=== PATIENT | female | born 1965 | race Caucasian/White ===

== ENCOUNTER 2018-07-27 10:38 | Emergency (ER) | payer MEDICAID ==
[~2018-07-27] VITALS: Ht 160 cm; Wt 106.6 kg
[2018-07-27] MEDS ORDERED: MS CONTIN15 MG PO (10:52)
[2018-07-27] MEDS ORDERED: SYNTHROID175 MCG PO (10:53)
[2018-07-27] MEDS ORDERED: HYDROCODON-ACE1 EAC5 PO (10:53)
[2018-07-27] MEDS ORDERED: ZANAFLEX2 MG PO (10:53)
[2018-07-27] MEDS ORDERED: VITAMIN D5000 UNIT PO (10:54)
[2018-07-27] MEDS ORDERED: PROPRANOLOL 1010 MG PO (10:54)
[2018-07-27] MEDS ORDERED: SLEEP AID25 M1 PO (10:55)
[2018-07-27 11:11] LABS: ABSOLUTE BASOPHILS 0.1 thou/uL (0.0-0.2); ABSOLUTE EOSINOPHILS 0.1 thou/uL (0.0-0.7); ABSOLUTE LYMPHOCYTES 1.4 thou/uL (0.8-5.3); ABSOLUTE MONOCYTES 0.3 thou/uL (0.0-1.2); ABSOLUTE NEUTROPHILS 1.8 thou/uL (1.6-8.1); BASOPHILS 1.4 %; EOSINOPHILS 3.7 %; HEMATOCRIT 36.8 % (37.0-47.0); HEMOGLOBIN 12.4 gm/dL (12.0-15.0); LYMPHOCYTES 39.1 %; MCH 28.9 pg (26.0-34.0); MCHC 33.6 g/dL (28.0-37.0); MONOCYTES 7.3 %; MPV 8.7 fl. (7.2-11.1); NUCLEATED RBCS 0 /100WBC; PLATELET COUNT* 223 thou/uL (150-400); POLYS 48.5 %; RBC 4.28 mil/uL (4.20-5.00); RDW-CV 13.4 % (10.5-14.5); WBC 3.7 thou/uL (4.0-11.0)
[2018-07-27 11:24] LABS: ANION GAP 9 mmol/L (7-16); BUN 13 mg/dL (7-18); CALCIUM 9.1 mg/dL (8.5-10.1); CHLORIDE 107 mmol/L (98-107); CO2 26 mmol/L (21-32); CREATININE 0.9 mg/dL (0.6-1.3); GLUCOSE 118 mg/dL (70-99); POTASSIUM 3.7 mmol/L (3.5-5.1); PROTIME 10.5 Seconds (9.20-11.50); SODIUM 142 mmol/L (136-145)
[2018-07-27 11:36] LABS: ALBUMIN 3.5 g/dL (3.4-5.0); ALKALINE PHOSPHATASE 75 U/L (46-116); LIPASE 113 U/L (73-393); NT-PRO BRAIN NAT PEPTIDE 184 pg/mL (<300); SGOT 17 U/L (15-37); SGPT 22 U/L (30-65); TOTAL BILIRUBIN 0.6 mg/dL (<0.1-1.0); TOTAL PROTEIN 6.8 g/dL (6.4-8.2); TROPONIN-I LEVEL <0.06 ng/mL (<0.06)
[2018-07-27] MEDS ORDERED: MEDROL DOSPAK21 TA1 PO (12:02)
[2018-07-27 12:11] VITALS: BP 143/78
--- NOTE | 2018-07-27 17:35 | EKG ---
[place] [address] ELECTROCARDIOGRAM REPORT Name: SELVIN HUGHES Room: [facility]#: [id number] Admission: 07/27/18 Attend Phys: Discharge: 07/27/18 Date of : 61 Report #: [id number] THIS REPORT FOR: //name// [facility] ED Test Date: 2018-07-27 Test Time: 10:45:46 Pat Name: SELVIN HUGHES Department: Room: Gender: F Circular Ripsaw Operator: : 1965 Requested By: Eric Moreno Order Number: [id number] MD: Corey Varner Measurements Intervals [place] Rate: 69 P: 46 MS: 164 QRS: 28 QRSD: 94 T: 38 QT: 399 QTc: 428 Interpretive Statements Sinus rhythm Abnormal inferior Q waves Baseline wander in lead(s) V1 No previous ECG available for comparison Electronically Signed On 07-27-2018 17:35:30 CDT by Corey Varner [email or web address] <ELECTRONICALLY SIGNED> By: Corey Varner MD, [facility] 07/27/18 1735 1045 1045 Corey Varner MD, FACC /EPI
== END 2018-07-27 12:11 | disposition home or self-care (01) ==
LOC: M.ERS 10:38
PROVIDERS: Emergency Medicine
DX: M54.6 Pain in thoracic spine (principal); G43.909 Migraine, unspecified, not intractable, without status migrainosus; Z90.49 Acquired absence of other specified parts of digestive tract; Z90.710 Acquired absence of both cervix and uterus; Z88.6 Allergy status to analgesic agent; Z88.8 Allergy status to other drugs, medicaments and biological substances

== ENCOUNTER 2019-02-09 17:37 | Emergency (ER) | payer MEDICAID ==
[~2019-02-09] VITALS: Ht 157.5 cm; Wt 111.1 kg
[~2019-02-09 17:37] MED LIST: HYDROCODON-ACE1 EAC5 PO; MEDROL DOSPAK21 TA1 PO; MS CONTIN15 MG PO; PROPRANOLOL 1010 MG PO; SLEEP AID25 M1 PO; SYNTHROID175 MCG PO; VITAMIN D5000 UNIT PO; ZANAFLEX2 MG PO
[2019-02-09] MEDS ORDERED: VITAMIN D250 MCG PO (17:50)
[2019-02-09] MEDS ORDERED: AZITHROMYCIN 2250 MG PO (17:59)
[2019-02-09 18:38] VITALS: BP 176/81
== END 2019-02-09 18:39 | disposition home or self-care (01) ==
LOC: M.ERS 17:37
DX: J40 Bronchitis, not specified as acute or chronic (principal); I10 Essential (primary) hypertension; G43.909 Migraine, unspecified, not intractable, without status migrainosus; Z88.6 Allergy status to analgesic agent; Z90.49 Acquired absence of other specified parts of digestive tract; Z90.710 Acquired absence of both cervix and uterus

== ENCOUNTER 2019-10-14 09:26 | Inpatient (IN) | payer MEDICAID ==
[~2019-10-14] VITALS: Ht 157.5 cm; Wt 128.4 kg
--- NOTE | ~2019-10-14 | PROC ---
[address] [address] PROCEDURE REPORT Name: SELVIN HUGHES Room: [address] IN .R.#: [id number] Admission: 10/14/19 Attend Phys: Nomi Lewis Discharge: 10/19/19 Date of : 61 Report #: [id number] THIS REPORT FOR: //name// cc: Physician not on staff Physician not on staff ~ THIS REPORT FOR: //name// For GI report, please see the Provation report in Perceptive 7 content. By: 0823Medical Records Staff [facility] /JEANNE
--- NOTE | ~2019-10-14 | CON ---
[address] [address] CONSULTATION Name: SAULSELVIN Av Room: [address] IN .R.#: [id number] Admission: 10/14/19 Attend Phys: Nomi Lewis Discharge: Date of : 61 Report #: [id number] THIS REPORT FOR: //name// cc: Physician not on staff Physician not on staff ~ THIS REPORT FOR: //name// CC: SUNNI CARPENTER Physician staff Sky Lynn DATE OF SERVICE: 10/15/2019 REQUESTING PHYSICIAN: Sky Lynn DO. REASON FOR CONSULTATION: Acute kidney injury. HISTORY OF PRESENT ILLNESS: The patient is a very pleasant 54-year-old female with medical history significant for hypertension, obesity, history of bronchitis. She presents to the hospital with complaints of abdominal pain. The patient states that abdominal pain has been present for last several weeks, but now it is getting worse. She also had some vomiting and nausea. She has some low-grade fever. She in the past had a history of renal stones, but CT scan that was done here did not show any nephrolithiasis or any other obstruction. When she presented to the hospital, her creatinine was 3.7, it is 3.7 today as well. Her urine showed trace protein, trace blood, 1+ leukocyte esterase, few bacteria. No microbiology was done. She was started on Levaquin and metronidazole. Her pain is still present. PAST MEDICAL HISTORY: As I mentioned earlier. SOCIAL HISTORY: No tobacco or alcohol abuse. FAMILY HISTORY: Negative for renal problems. REVIEW OF SYSTEMS: Positive for symptoms as mentioned earlier, otherwise all systems reviewed and negative. MEDICATIONS: Reviewed. From my standpoint, she was on furosemide 20 mg a day and lisinopril 5 mg a day. PHYSICAL EXAMINATION: GENERAL: She is awake, alert, oriented. VITAL SIGNS: Blood pressure now is 180/104, it was as low as 74/35. Today, [place] [address] CONSULTATION Name: SELVIN HUGHES Room: [address]#: [id number] Admission: 10/14/19 Attend Phys: Nomi Lewis Discharge: Date of : 61 Report #: [id number] am suspecting that 180/104 is incorrect reading, her blood pressure, while she was here been fluctuating before 74/35 up to 130/62. Again, 180/104, most likely is incorrect reading, her heart rate is 107, temperature 36.6. HEENT: Pupils are round. NECK: Fatty. LUNGS: Clear. CARDIOVASCULAR: Tachycardia. ABDOMEN: Soft, but diffusely tender. LOWER EXTREMITIES: Trace edema. LABORATORY DATA: Serum sodium 139, potassium ____, chloride 105, carbon dioxide 20, BUN 34, creatinine 3.7, hemoglobin is 13.4, white count 6.1 thousand. Hepatitis negative. Her COVID-19 is negative[address] She had CT scan, abdominal and pelvis CT and they found indeterminate left lower lobe pulmonary nodule, malignancy not excluded. There were no abnormalities found in kidney or ureters. No evidence of diverticulitis. ASSESSMENT: 1. Acute kidney injury likely due to volume depletion. She had nausea, vomiting, abdominal pain, decreased p.o. intake. She was also hypotensive, blood pressure was in 70s today. 2. Abdominal pain. Surgery is on the case. 3. Left lower lobe nodule. PLAN: 1. Continue hydration. 2. We will follow on her labs. 3. Check her postvoid residual. 4. Await more recommendation from the surgery. By: 1523 2046Alexchristina Morales MD /nt
--- NOTE | ~2019-10-14 | CON ---
[address] [address] CONSULTATION Name: SELVIN HUGHES Room: [address] IN .R.#: [id number] Admission: 10/14/19 Attend Phys: Nomi Lewis Discharge: Date of : 61 Report #: [id number] THIS REPORT FOR: //name// cc: Physician not on staff Physician not on staff ~ THIS REPORT FOR: //name// CC: SUNNI CARPENTER Physician staff Sky Lynn DATE OF SERVICE: 10/17/2019 HISTORY OF PRESENT ILLNESS: This is a 54-year-old female patient who is admitted with multiple medical problems. Neurology consultation was requested to evaluate the patient for memory problem, I will confine myself to that. She is also having a lot of other issues, which is being addressed by multiple other consultants. She said first that memory problem started about 6 months ago, but then she said it is going longer than that, this started spontaneously without any trauma. Presently, she is having numerous other medical issues. She is having recurrent nausea and vomiting. She has kidney dysfunction. She was running some low-grade temperature. REVIEW OF SYSTEMS: A 14-point review of system is positive for longstanding back pain. She has a kidney problem. She has an abdominal pain. She has a pulmonary nodule. She denies any history of anxiety and depression. The rest of the 14-point review of system was noncontributory. PAST MEDICAL HISTORY: Back pain. FAMILY HISTORY: Noncontributory. SOCIAL HISTORY: She has a prior history of smoking. She does not use alcohol. PHYSICAL EXAMINATION: Indicate she is alert, responsive, able to follow simple and complex command. Cranial nerve examination appeared noncontributory. Speech looks intact. Strength, sensation, reflexes are symmetrical, but reflexes were diminished. Position sense appeared to be present. I could not look at the patient's fundus. There is no meningeal sign. She is morbidly obese, but hearing and vision looks adequate. Cardiac and respiratory examinations appear unremarkable. Blood pressure is 127/49, respirations 18, pulse is 75, temperature is 98.5. WBC count is 4.8. IMPRESSION: As far as the memory problem is concerned, [place] [address] CONSULTATION Name: SAULSELVIN Av Room: [address] IN [facility]#: [id number] Admission: 10/14/19 Attend Phys: Nomi Lewis Discharge: Date of : 61 Report #: [id number] workup. I gave her some thiamine. She had sleeve surgery in the past. We may even have to check a copper level, but initially I will check a B12 levels and do an MRI on her when she is stable, her nausea need to be better before we do that and if nausea is not better, then we can do only CT. I will see how she is doing tomorrow and go from there. Thank you very much for this referral. By: 1115 1214Pramona Barclay MD /nt
[~2019-10-14 09:26] MED LIST changes: +AZITHROMYCIN 2250 MG PO; +VITAMIN D250 MCG PO; +ZANAFLEX2 M1 PO; -ZANAFLEX2 MG PO
[2019-10-14 09:31] VITALS: BP 133/62
[2019-10-14] MEDS ORDERED: PROTONIX40 M2 PO (09:36)
[2019-10-14] MEDS ORDERED: PERCOCET 10-321 EAC1 PO (09:36)
[2019-10-14] MEDS ORDERED: FUROSEMIDE 20 M20 M1 PO (09:36)
[2019-10-14] MEDS ORDERED: HYDROXYZINE HCL25 M2 PO (09:37)
[2019-10-14] MEDS ORDERED: LEVO-T100 MCG PO (09:37)
[2019-10-14] MEDS ORDERED: VITAMIN D250 MCG PO (09:37)
[2019-10-14] MEDS ORDERED: PRINIVIL10 MG PO (09:38)
[2019-10-14 09:43] LABS: URINE BLOOD TRACE (Negative); URINE CLARITY CLEAR; URINE COLOR YELLOW; URINE GLUCOSE-RANDOM NEGATIVE (Negative); URINE KETONES NEGATIVE (Negative); URINE LEUKOCYTES-REFLEX 1+ (Negative); URINE NITRITE-REFLEX NEGATIVE (Negative); URINE PROTEIN TRACE (Negative); URINE SPECIFIC GRAVITY >= 1.030 (1.005-1.030); URINE UROBILINOGEN 0.2 E.U./dl (0.2-1.0)
[2019-10-14 09:51] LABS: URINE BILIRUBIN 1+ (Negative)
[2019-10-14 09:52] LABS: BACTERIA-REFLEX 1-9 Few /HPF (None Seen); CASTS None Seen /LPF (None Seen); CRYSTALS None Seen /LPF (None Seen); ICTOTEST (BILI CONFIRMATORY) Negative (Negative); SQUAMOUS 0-3 Few /LPF (0-3); URINE RBC 0-2 Rare /HPF (0-2); URINE WBC-REFLEX 0-5 Rare /HPF (0-5)
[2019-10-14 10:02] LABS: ABSOLUTE EOSINOPHILS 0.3 thou/uL (0.0-0.7); ABSOLUTE LYMPHOCYTES 2.3 thou/uL (0.8-5.3); ABSOLUTE MONOCYTES 0.4 thou/uL (0.0-1.2); ABSOLUTE NEUTROPHILS 3.2 thou/uL (1.6-8.1); BASOPHILS 0.8 %; EOSINOPHILS 4.4 %; HEMATOCRIT 38.9 % (37.0-47.0); HEMOGLOBIN 13.4 gm/dL (12.0-15.0); LYMPHOCYTES 36.9 %; MCH 29.1 pg (26.0-34.0); MCHC 34.3 g/dL (28.0-37.0); MCV 84.8 fL (80.0-100.0); MONOCYTES 6.1 %; MPV 8.8 fl. (7.2-11.1); NUCLEATED RBCS 0 /100WBC; PLATELET COUNT* 253 thou/uL (150-400); POLYS 51.8 %; RBC 4.59 mil/uL (4.20-5.00); WBC 6.1 thou/uL (4.0-11.0)
[2019-10-14 10:10] LABS: CALCIUM 9.8 mg/dL (8.5-10.1); CREATININE 3.7 mg/dL (0.6-1.3); POTASSIUM 3.8 mmol/L (3.5-5.1)
[2019-10-14 10:14] LABS: ALBUMIN 4.1 g/dL (3.4-5.0); TOTAL BILIRUBIN 0.9 mg/dL (<0.1-1.0); TOTAL PROTEIN 7.9 g/dL (6.4-8.2)
--- NOTE | 2019-10-14 11:19 | NUR ---
Roxanne notified upon pt return from CT. Pt connected to bp and puls ox monitor as she was prior
--- NOTE | 2019-10-14 15:45 | EKG ---
[place] [address] ELECTROCARDIOGRAM REPORT Name: SELVIN HUGHES Room: [place] [address] ADM IN [facility].#: [id number] Admission: 10/14/19 Attend Phys: Sky Lynn Discharge: Date of : 61 Date of Service: 10/14/19 1008 Report #: [id number] THIS REPORT FOR: //name// [facility] ED Test Date: 2019-10-14 Test Time: 10:08:58 Pat Name: SELVIN HUGHES Department: Room: [facility] Gender: F Guyline Operator: ELISSA : 1965 Requested By: James Escalante Order Number: [id number] MD: Corey Varner Measurements Intervals [place] Rate: 94 P: 54 WI: 178 QRS: 26 QRSD: 95 T: 24 QT: 341 QTc: 427 Interpretive Statements Sinus rhythm Inferior infarct, old Compared to ECG 07/27/2018 10:45:46 Myocardial infarct finding now present Inferior Q waves no longer present Q waves no longer present Electronically Signed On 10-14-2019 15:44:57 CDT by Corey Varner [email or web address] <ELECTRONICALLY SIGNED> By: Corey Varner MD, FAC 10/14/19 1544 1008 1008 Corey Varner MD, [facility] /EPI
[2019-10-14 16:05] LABS: BE -7.6 mmol/L (-2 to +3); PCO2 VENOUS 49.4 mmHg (41.0-51.0)
[2019-10-14 16:15] VITALS: BP 112/52
[2019-10-14 16:18] VITALS: BP 123/52
--- NOTE | 2019-10-14 16:51 | NUR ---
PATIENT ADMITTED TO 218 THIS AFTERNOON. SHE IS ALERT AND ORIENTED X 4. SHE INITALLY DENIED PAIN ON ARRIVAL BUT SHE IS NOW C/O ABD PAIN. PATIENT ORIENTED TO ROOM AND PROCEDURES. PLACED ON TELE MONITOR. TELE SHOWS SR. IV FLUIDS INFUSING PER ORDER.
[2019-10-14 20:00] VITALS: BP 93/47
[2019-10-15] VITALS (7 sets, daily range): BP systolic 74–180; BP diastolic 35–104
[2019-10-15 03:06] LABS: HEPATITIS B SURFACE AG Negative (Negative)
--- NOTE | 2019-10-15 06:43 | NUR ---
ASSUMED CARE OF PT AFTER REPORT AT 1930. PT A&OX4. VSS. PHYSICAL ASSESSMENT COMPLETED AND CHARTED. PT ON RA. PT TRACING SR/SB ON TELE. PT UPADLIB. PT COMPLAINED OF NAUSEA, ABDOMINAL & BACK PAIN-MED GIVEN PER MAR. CALL LIGHT WITHIN REACH.
--- NOTE | 2019-10-15 11:09 | NUR ---
Nutrition: BMI 50. Admit with abd pain that started 2-3 weeks ago. Had not been taking lasix. C/o nausea this am. RFT's elevated, albumin WNL. Promethazine and other meds reviewed. Hx of scleroderma, lap band, gastric sleeve. Wt up from prior admits. Expect good po as symptoms resolve, assess at mild risk.
[2019-10-15 12:43] LABS: CALCIUM 8.8 mg/dL (8.5-10.1); CREATININE 3.7 mg/dL (0.6-1.3); POTASSIUM 4.5 mmol/L (3.5-5.1)
--- NOTE | 2019-10-15 16:07 | NUR ---
CM SPOKE TO THE PT TO DISCUSS HER HOME SITUATION, DISCHARGE PLANNING, AND TO INFORM OF THE ROLE OF CM. PT A&O. NORMALLY INDEPENDENT WITH ADL'S, AND DRIVES. PT RESIDES AT HOME, AND IS THE PRIMARY CAREGIVER FOR HER 10 YEAR OLD GRANDSON. PT INFORMS THAT HER DTR IS A GOOD SOURCE OF SUPPORT FOR HER AND IS CURRENLTY PROVIDING CARE FOR HER GRANDSON WHILE SHE IS INPATIENT. PT USES A WALKER FOR MOBILITY, BUT ALSO OWNS A [facility] HOSPITAL BED IN THE HOME. PT HAS 0 HX OF HH AND SNF. PT PLANS TO RETURN HOME AT D/C, AND DOES NOT ANTICIPATE ANY D/C PLANNING NEEDS.
[2019-10-16] VITALS: BP 114/48
[2019-10-16 04:59] VITALS: BP 103/43
--- NOTE | 2019-10-16 05:44 | NUR ---
Pt alert and oriented. VSS on 2L O2. Pt ambulates independently. Encouraged to call if needing help. Pt had pain meds several times this shift. Pt was able to sleep off and on this shift. LFA IV infiltrated. Warm compress to L/arm. New Iv to RFA, with NS @100. Meds given as ordered. Post void residue = 0ml. Will continue to monitor.
[2019-10-16 08:00] VITALS: BP 102/48
[2019-10-16 09:28] LABS: ABSOLUTE EOSINOPHILS 0.2 thou/uL (0.0-0.7); ABSOLUTE LYMPHOCYTES 1.6 thou/uL (0.8-5.3); ABSOLUTE MONOCYTES 0.4 thou/uL (0.0-1.2); ABSOLUTE NEUTROPHILS 3.6 thou/uL (1.6-8.1); BASOPHILS 0.5 %; EOSINOPHILS 2.9 %; HEMATOCRIT 33.1 % (37.0-47.0); LYMPHOCYTES 27.5 %; MCH 29.2 pg (26.0-34.0); MCHC 34.1 g/dL (28.0-37.0); MCV 85.7 fL (80.0-100.0); MONOCYTES 6.7 %; MPV 8.4 fl. (7.2-11.1); NUCLEATED RBCS 0 /100WBC; PLATELET COUNT* 236 thou/uL (150-400); POLYS 62.4 %; RBC 3.86 mil/uL (4.20-5.00); RDW-CV 14.2 % (10.5-14.5); WBC 5.7 thou/uL (4.0-11.0)
[2019-10-16 09:34] LABS: HEMOGLOBIN 11.3 gm/dL (12.0-15.0)
[2019-10-16 09:37] LABS: CALCIUM 8.9 mg/dL (8.5-10.1); POTASSIUM 4.4 mmol/L (3.5-5.1)
[2019-10-16 11:59] VITALS: BP 101/53
[2019-10-16 17:27] VITALS: BP 142/61
--- NOTE | 2019-10-16 18:55 | NUR ---
PT. AOX4, VSS, PAIN NOT UNDER CONTROL, SR-ST ON MONITOR. DISCUSSED POC AND POSSIBLE CAUSE OF PAIN TO BLE PER SURGERY. 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 REINFORCED REASONING. CALL LIGHT AND PERSONAL BELONGINGS PLACED WITHIN REACH. TRANSFERED CARE OF PT TO JAVID MANLEY AT 1630 HOURS. PT. IN STABLE CONDITION AT THAT TIME.
[2019-10-16 19:30] VITALS: BP 148/70
[2019-10-17] VITALS: BP 99/60
[2019-10-17 04:00] VITALS: BP 127/49
[2019-10-17 04:58] LABS: ABSOLUTE EOSINOPHILS 0.1 thou/uL (0.0-0.7); ABSOLUTE LYMPHOCYTES 1.2 thou/uL (0.8-5.3); ABSOLUTE MONOCYTES 0.3 thou/uL (0.0-1.2); ABSOLUTE NEUTROPHILS 3.2 thou/uL (1.6-8.1); EOSINOPHILS 1.9 %; HEMATOCRIT 28.8 % (37.0-47.0); HEMOGLOBIN 9.8 gm/dL (12.0-15.0); LYMPHOCYTES 24.6 %; MCH 29.1 pg (26.0-34.0); MCHC 34.2 g/dL (28.0-37.0); MONOCYTES 6.6 %; MPV 8.7 fl. (7.2-11.1); NUCLEATED RBCS 0 /100WBC; PLATELET COUNT* 207 thou/uL (150-400); POLYS 65.9 %; RBC 3.38 mil/uL (4.20-5.00); RDW-CV 13.7 % (10.5-14.5); WBC 4.8 thou/uL (4.0-11.0)
[2019-10-17 05:17] LABS: CALCIUM 8.9 mg/dL (8.5-10.1); CREATININE 2.2 mg/dL (0.6-1.3)
--- NOTE | 2019-10-17 06:47 | NUR ---
PT ALERT AND ORIENTED. PT STILL ON 2L O2. CONTINOUS PULSOX. MEDS GIVEN ORDERED. PAIN MEDS GIVEN THIS SHIFT. PT STILL GETTING 8MG OF MORPHINE. PT VOICED HAVING HEADACHE FOR THE PAST 2 NIGHTS WHICH IS NEW TO ME I HAVE TAKEN CARE OF HER FOR 2 NIGHTS AND DID PAIN ASSESSMENT AND SHE NEVER MENTIONED HEADACHE PRIOR. CONCERNS FOR DRUG SEEKING BEHAVIOR. PT AMBULATES INDEPENDENTLY TO THE BATHROOM. ENCOURAGED TO CALL IF NEEDING ASSISTANCE. WILL CONTINUE TO MONITOR.
[2019-10-17 08:00] VITALS: BP 151/79
--- NOTE | 2019-10-17 08:10 | NUR ---
ASSUMED CARE OF PATIENT THIS MORNING FROM NIGHT NURSE. PT IS DOING BETTER TODAY BUT STILL HAVING CO OF PAIN AND NAUSEA. SHE WAS EDUCATED ON POC, DISEASE PROCESS AND USING THE CALL LIGHT FOR ASSISTANCE. WILL CONTINUE TO CONTROL PAIN AND NAUSEA.
[2019-10-17 12:00] VITALS: BP 143/107
[2019-10-17 16:10] VITALS: BP 106/83
[2019-10-17 20:00] VITALS: BP 156/58
[2019-10-18] VITALS: BP 106/57
[2019-10-18 04:00] VITALS: BP 132/60
[2019-10-18 05:20] LABS: CALCIUM 8.7 mg/dL (8.5-10.1); CREATININE 1.5 mg/dL (0.6-1.3); POTASSIUM 4.4 mmol/L (3.5-5.1)
--- NOTE | 2019-10-18 07:40 | NUR ---
PT A+O X4. MULTIPLE REQUESTS @ HS. AGREEMENT WITH PT TO KEEP O2 AND CONTINUOUS PULSE OX ON BEFORE GIVING IV PAIN MEDS PT WAS ALREADY ON MULTIPLE PO OPIATES AND PT'S 02 SAT WAS UPPER 80'S ON ROOM AIR. PT AGREED TO KEEP ON O2 AND PULSE OX, BUT KEPT TAKING THEM OFF THROUGH THE NIGHT. PT DID NOT WAKE UP AFTER BEDTIME IV MORPHINE DOSE BUT DID WAKE UP THIS AM WHEN RN STARTED IV ABX. ASKED FOR IV PAIN MEDS BUT PT HAD UNSTEADY GAIT WHILE WALKING BACK FROM THE BATHROOM. GAVE PT ORAL PAIN MEDICATION WAS SCHEDULED AND REEDUCATED PT ON NEED TO WEAR O2 AND PULSE-OX AND EFFECTS OF OPIATES ON RESPIRATORY DRIVE. PASSED ABOVE INFORMATION TO DAY RN.
[2019-10-18 07:45] VITALS: BP 147/76
[2019-10-18 12:06] LABS: GLOMERULR BASEM MEMBRN AB 3 units (0-20)
[2019-10-18 12:19] VITALS: BP 167/92
[2019-10-18 15:07] LABS: M-SPIKE Not Observed g/dL (Not Observed)
[2019-10-18 16:26] VITALS: BP 145/72
--- NOTE | 2019-10-18 18:48 | NUR ---
PT A&OX4 VSS. SCHEDULED PO PAIN MEDS ADMINISTERED ORDERED. PRN IV MORPHINE X1 THIS SHIFT. PT ON ROOM AIR AT TIME OF ASSESSMENT. PT UP AD VALERIY, GAIT STEADY. IV TO RFA PATENT. SOME BRUISING OBSERVED NEAR SITE AT TIME OF ASSUMING CARE. NO SWELLING, NO C/O PAIN WHEN FLUSHED. GI CONSULTED, PT TO BE NPO AT MIDNIGHT. 1X PO AND RECTAL BISACODYL FOR C/O CONSTIPATION. LG STOOL THIS AFTERNOON. PT EDUCATED REGARDING PAIN MEDICATION AND NEED FOR INCREASED WATER TO HELP WITH CONSTIPATION. PT RESTS IN ROOM WITH CALL LIGHT AND PHONE IN REACH. WILL CONTINUE TO MONITOR.
[2019-10-18 20:00] VITALS: BP 167/79
[2019-10-18 21:06] LABS: ANA INTERPRETATION Positive (())
[2019-10-19] VITALS (7 sets, daily range): BP systolic 130–171; BP diastolic 48–91
[2019-10-19 05:07] LABS: CALCIUM 8.4 mg/dL (8.5-10.1); CREATININE 1.1 mg/dL (0.6-1.3); POTASSIUM 3.7 mmol/L (3.5-5.1)
[2019-10-19] MEDS ORDERED: ZOFRAN4 MG PO (09:09)
[2019-10-19] MEDS ORDERED: PREDNISONE 5 MG5 M1 PO (09:09)
[2019-10-19] MEDS ORDERED: MIRALAX17 GM PO (13:27)
[2019-10-19] MEDS ORDERED: FLAGYL500 M1 PO (13:27)
[2019-10-19] MEDS ORDERED: CEPHALEXIN250 MG PO (13:27)
[2019-10-19] MEDS ORDERED: PREDNISONE 20 M20 MG PO (13:28)
[2019-10-19] MEDS ORDERED: NEURONTIN 300M300 M2 PO (13:28)
[2019-10-19] MEDS ORDERED: PNV 29-1 TABLE1 EACH PO (13:28)
[2019-10-19] MEDS ORDERED: VITAMIN B-1100 M1 PO (13:28)
[2019-10-19] MEDS ORDERED: CARAFATE 1 GM TA1 G1 PO (13:28)
[2019-10-19] MEDS ORDERED: PROTONIX40 M2 PO (13:28)
--- NOTE | 2019-10-20 09:59 | CON ---
[address] [address] CONSULTATION Name: SELVIN HUGHES Room: [address] IN .R.#: [id number] Admission: 10/14/19 Attend Phys: Nomi Lewis Discharge: 10/19/19 Date of : 61 Report #: [id number] THIS REPORT FOR: //name// cc: Physician not on staff Physician not on staff ~ THIS REPORT FOR: //name// CC: SUNNI CARPENTER DO Physician staff Sky Lynn DICTATED BY: Kirstin Wade [facility] DATE OF SERVICE: 10/18/2019 Please note at the time of this dictation, the patient was seen and physically examined by myself. REASON FOR CONSULTATION: Abdominal pain and vomiting. HISTORY OF PRESENT ILLNESS: This is a 54-year-old female who presented to the Emergency Room with severe abdominal pain and vomiting. She states it began about 2-3 weeks ago. She thought it was her "liver" acting up, states that she has been vomiting some dark green emesis 2 days prior to admission and her pain is worse in the lower abdominal region. She states she started running a fever at home as well and it progressively got worse. The patient states she has never had a colonoscopy before they attempted to do one at [facility] and they were unable to do because the patient was in such severe pain, is what she states. The patient states her bowels only move once to twice every 2 weeks and she does not take anything regularly for them. She takes a great deal. She has ongoing back issues, which she complains about fairly significantly with radiation into her hips, which she has been requiring a great deal of pain medicine and the abdominal CT was essentially negative on admission. The patient has not had very small pellets after an enema was given and still has not had much relief. ALLERGIES: FENTANYL AND LYRICA. MEDICATIONS: From home; include hydroxyzine, morphine, MS Contin, vitamin D2, Protonix, Lasix, levothyroxine, Prinivil, Zanaflex and Percocet. 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 PAST SURGICAL HISTORY: Uterine and also a history of uterine and cervical cancer, post-hysterectomy, thyroidectomy partial, lap band gastric sleeve, [place] [address] CONSULTATION Name: SELVIN HUGHES Room: [address] IN [facility]#: [id number] Admission: 10/14/19 Attend Phys: Nomi Lewis Discharge: 10/19/19 Date of : 61 Report #: [id number] cholecystectomy, multiple ovarian cysts removed and procedure for spinal cord leaks. FAMILY HISTORY: Negative for any GI or female cancers. SOCIAL HISTORY: Denies any alcohol, tobacco or illegal drug use. REVIEW OF SYSTEMS: Twelve-point review of systems is essentially negative except what is mentioned in the HPI. PHYSICAL EXAMINATION: VITAL SIGNS: Temperature 37.5, pulse 83, respirations 17, blood pressure 147/76. HEART: Regular rate and rhythm. LUNGS: Diminished, but clear. ABDOMEN: Soft, positive bowel sounds to hypoactive bowel sounds throughout with generalized tenderness, mainly in the lower quadrants. LABORATORY DATA: Hemoglobin on admission was 13.4, she has gradually dropped down to 9.8; white count is 4.8 and was normal on admission, platelets 207. Lipase is 148. BUN on admission was 33, has gradually dropped down to 20. GFR is 36. TSH was 0.121. CT showed absent gallbladder, otherwise essentially negative. The patient also had been complaining of some dysphagia periodically with swallowing as well. IMPRESSION: 1. Abdominal pain. 2. Constipation, chronic. 3. Dysphagia. 4. Melanotic stool. 5. Anemia. 6. Personal history of cervical and uterine cancer. PLAN: 1. EGD tomorrow with Dr. Flynn. 2. Dulcolax 20 mg tablet now and Dulcolax suppository 20 mg now as well. 3. Further recommendations to be made after the above has been noted. 4. The patient will need a colonoscopy with a 2-day prep as an outpatient since she has never had one, unless we choose to evaluate her anemia [place] [address] CONSULTATION Name: SAULSELVIN Av Room: [address] IN [facility].#: [id number] Admission: 10/14/19 Attend Phys: Nomi Lewis Discharge: 10/19/19 Date of : 61 Report #: [id number] Thank you for allowing us to participate in this patient's care. Please do not hesitate to call with any questions in regard to this consult. <ELECTRONICALLY SIGNED> By: Ross Flynn MD 10/20/19 0959 1207 1237Ross Flynn MD /nt
--- NOTE | 2019-10-21 12:06 | PATH ---
[address] [address] PATHOLOGY RPT PROCEDURE Name: ARLYN HUGHES Room: [address] IN M.R.#: [id number] Admission: 10/14/19 Date of : 61 Discharge: 10/19/19 Report #: [id number] Path Case #: [id number] [facility] Accession Number: [id number] . 01 Material submitted: . stomach - ANTRAL BIOPSY FOR GASTRITIS TO R/O H. PYLORI . 01 Clinical history: . Gastritis to r/o H.pylori . 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 (CAROLE:pit 10/21/2019) . Special stain: H. pylori immuno . [facility] 10/21/2019 1135 Local . 02 Electronically signed: . Chris Mosqueda MD, Pathologist NPI- [id number] . 01 Gross description: . The specimen is received in formalin, labeled "Froilan, Arlyn, antral biopsy" and consists of multiple fragments of hughes tissue measuring 0.9 x 0.5 x 0.2 cm in aggregate which are entirely submitted in A1. (SDY; 10/20/2019) SYU/SYU 10/20/2019 1341 Local . 02 Pathologist provided ICD-10: K29.50 . 02 CPT . 517651, S60201 Specimen Comment: A courtesy copy of this report has been sent to [phone] Specimen Comment: [phone], Specimen Comment: Report sent to ,DR CHAN / DR CARPENTER Performed at: [address] [facility] [address] [id number] MD Toni Bella MD Phone: [phone] Performed at: [address] [facility] [address] [place], [place] [id number] [place] [address] PATHOLOGY RPT PROCEDURE Name: ARLYN HUGHES Room: [address] IN M.R.#: [id number] Admission: 10/14/19 Date of : 61 Discharge: 10/19/19 Report #: [id number] Path Case #: [id number] MD Chris Mosqueda MD Phone: [phone]
== END 2019-10-19 19:00 | disposition home or self-care (01) | DRG 392 ==
LOC: M.ERS 09:26 → M.TBA-ER 12:08 → M.2W 16:17
PROVIDERS: Family Medicine; Internal Medicine Nephrology; Surgery; ADMIT Internal Medicine; ATTEND Internal Medicine
PROC: 0DB68ZX Excision of Stomach, Via Natural or Artificial Opening Endoscopic, Diagnostic (ICD-10-PCS; principal; 2019-10-19)
PROC: 0D738ZZ Dilation of Lower Esophagus, Via Natural or Artificial Opening Endoscopic (ICD-10-PCS; principal; 2019-10-19)
DX: K29.70 Gastritis, unspecified, without bleeding (principal); K55.9 Vascular disorder of intestine, unspecified; N17.9 Acute kidney failure, unspecified; N39.0 Urinary tract infection, site not specified; E89.0 Postprocedural hypothyroidism; G43.909 Migraine, unspecified, not intractable, without status migrainosus; R91.1 Solitary pulmonary nodule; K59.09 Other constipation; D64.9 Anemia, unspecified; I10 Essential (primary) hypertension; F41.1 Generalized anxiety disorder; K21.9 Gastro-esophageal reflux disease without esophagitis; M46.80 Other specified inflammatory spondylopathies, site unspecified; M34.9 Systemic sclerosis, unspecified; M54.9 Dorsalgia, unspecified; E06.3 Autoimmune thyroiditis; R13.10 Dysphagia, unspecified; K44.9 Diaphragmatic hernia without obstruction or gangrene; K22.2 Esophageal obstruction; Z20.828 Contact with and (suspected) exposure to other viral communicable diseases; Z88.8 Allergy status to other drugs, medicaments and biological substances; Z85.41 Personal history of malignant neoplasm of cervix uteri; Z90.49 Acquired absence of other specified parts of digestive tract; Z90.710 Acquired absence of both cervix and uterus; Z85.42 Personal history of malignant neoplasm of other parts of uterus; Z82.49 Family history of ischemic heart disease and other diseases of the circulatory system; Z87.891 Personal history of nicotine dependence

== ENCOUNTER 2021-02-11 14:07 | Emergency (ER) | payer MEDICAID ==
[~2021-02-11] VITALS: Ht 157.5 cm; Wt 120.2 kg
[~2021-02-11 14:07] MED LIST changes: +CARAFATE 1 GM TA1 G1 PO; +CEPHALEXIN250 MG PO; +FLAGYL500 M1 PO; +FUROSEMIDE 20 M20 M1 PO; +HYDROXYZINE HCL25 M2 PO; +LEVO-T100 MCG PO; +MIRALAX17 GM PO; +NEURONTIN 300M300 M2 PO; +PERCOCET 10-321 EAC1 PO; +PNV 29-1 TABLE1 EACH PO; +PREDNISONE 20 M20 MG PO; +PREDNISONE 5 MG5 M1 PO; +PRINIVIL10 MG PO; +PROTONIX40 M2 PO; +VITAMIN B-1100 M1 PO; +ZOFRAN4 MG PO
[2021-02-11 15:03] LABS: ABSOLUTE EOSINOPHILS 0.2 thou/uL (0.0-0.7); ABSOLUTE LYMPHOCYTES 2.1 thou/uL (0.8-5.3); ABSOLUTE MONOCYTES 0.3 thou/uL (0.0-1.2); ABSOLUTE NEUTROPHILS 1.9 thou/uL (1.6-8.1); BASOPHILS 0.7 %; EOSINOPHILS 5.4 %; HEMATOCRIT 39.1 % (37.0-47.0); HEMOGLOBIN 13.2 gm/dL (12.0-15.0); LYMPHOCYTES 45.9 %; MCH 28.9 pg (26.0-34.0); MCHC 33.7 g/dL (28.0-37.0); MONOCYTES 6.3 %; MPV 8.4 fl. (7.2-11.1); NUCLEATED RBCS 0 /100WBC; PLATELET COUNT* 230 thou/uL (150-400); POLYS 41.7 %; RBC 4.55 mil/uL (4.20-5.00); RDW-CV 13.8 % (10.5-14.5); WBC 4.6 thou/uL (4.0-11.0)
[2021-02-11 15:15] LABS: CALCIUM 9.3 mg/dL (8.5-10.1); CREATININE 0.9 mg/dL (0.6-1.3); POTASSIUM 4.2 mmol/L (3.5-5.1)
[2021-02-11 15:19] LABS: ALBUMIN 3.9 g/dL (3.4-5.0); TOTAL BILIRUBIN 0.3 mg/dL (<0.1-1.0); TOTAL PROTEIN 7.6 g/dL (6.4-8.2)
[2021-02-11 15:38] LABS: URINE BILIRUBIN NEGATIVE (Negative); URINE BLOOD NEGATIVE (Negative); URINE CLARITY CLEAR; URINE COLOR YELLOW; URINE GLUCOSE-RANDOM NEGATIVE (Negative); URINE KETONES NEGATIVE (Negative); URINE LEUKOCYTES-REFLEX NEGATIVE (Negative); URINE NITRITE-REFLEX NEGATIVE (Negative); URINE PROTEIN NEGATIVE (Negative); URINE SPECIFIC GRAVITY 1.015 (1.005-1.030); URINE UROBILINOGEN 0.2 E.U./dl (0.2-1.0)
[2021-02-11 17:01] VITALS: BP 129/64
--- NOTE | 2021-02-12 09:01 | EKG ---
[place] [address] ELECTROCARDIOGRAM REPORT Name: SELVIN HUGHES Room: [facility]#: [id number] Admission: 02/11/21 Attend Phys: Discharge: 02/11/21 Date of : 61 Date of Service: 02/11/21 1455 Report #: [id number] THIS REPORT FOR: //name// [facility] ED Test Date: 2021-02-11 Test Time: 14:55:36 Pat Name: SELVIN HUGHES Department: Room: Gender: F Drug Abuse Treatment Specialist: : 1965 Requested By: James Escalante Order Number: [id number] MD: Diaz Bauman Measurements Intervals [place] Rate: 84 P: 39 ND: 156 QRS: 4 QRSD: 87 T: 24 QT: 389 QTc: 460 Interpretive Statements Sinus rhythm LVH by voltage Baseline wander in lead(s) II Compared to ECG 10/14/2019 10:08:58 Left ventricular hypertrophy now present Electronically Signed On 02-12-2021 9:01:27 ASSISTANT PRESS OPERATOR by Diaz Bauman [email or web address] <ELECTRONICALLY SIGNED> By: Diaz Bauman MD, FACC 02/12/21 0901 1455 1455 Diaz Bauman MD, [facility] /EPI
== END 2021-02-11 17:02 | disposition home or self-care (01) ==
LOC: M.ERS 14:07
PROVIDERS: Family Medicine
DX: M54.9 Dorsalgia, unspecified (principal); G43.909 Migraine, unspecified, not intractable, without status migrainosus; F41.9 Anxiety disorder, unspecified; Z98.890 Other specified postprocedural states; Z90.49 Acquired absence of other specified parts of digestive tract; Z90.710 Acquired absence of both cervix and uterus; Z79.899 Other long term (current) drug therapy; Z88.5 Allergy status to narcotic agent

== ENCOUNTER 2021-05-07 15:55 | Emergency (ER) | payer MEDICAID ==
[~2021-05-07] VITALS: Ht 160 cm; Wt 122.5 kg
[2021-05-07 17:19] VITALS: BP 179/100
== END 2021-05-07 17:19 | disposition home or self-care (01) ==
LOC: M.ERS 15:55
DX: M79.672 Pain in left foot (principal); G43.909 Migraine, unspecified, not intractable, without status migrainosus; F41.0 Panic disorder [episodic paroxysmal anxiety]; Z90.89 Acquired absence of other organs; Z85.41 Personal history of malignant neoplasm of cervix uteri; Z85.42 Personal history of malignant neoplasm of other parts of uterus; Z98.84 Bariatric surgery status; Z90.49 Acquired absence of other specified parts of digestive tract; Z87.42 Personal history of other diseases of the female genital tract; Z90.710 Acquired absence of both cervix and uterus; Z79.899 Other long term (current) drug therapy; Z88.8 Allergy status to other drugs, medicaments and biological substances; W22.8XXA Striking against or struck by other objects, initial encounter; Y93.89 Activity, other specified; Y92.89 Other specified places as the place of occurrence of the external cause; Y99.8 Other external cause status